=== PATIENT | female | born 2000 | race Caucasian/White ===

== ENCOUNTER 2022-07-24 06:00 | Inpatient (IN) | payer BC, OTHER ==
[2022-07-25 06:38] VITALS: BMI 45.1
[2022-07-25] MEDS ORDERED: Methylergonovine 0.2 MG/ML VIAL IM PRN (06:44)
[2022-07-25] MEDS ORDERED: Promethazine HCl 25 MG/ML VIAL IM PRN (06:44)
[2022-07-25] MEDS ORDERED: Misoprostol 200 MCG TAB PR PRN (06:44)
[2022-07-25] MEDS ORDERED: Ondansetron PF 4 MG/2 ML Vial IVP PRN (06:44)
[2022-07-25] MEDS ORDERED: HYDROcodone/Acetaminophen 5/325 mg Tablet PO PRN (06:44)
[2022-07-25] MEDS ORDERED: Lidocaine 1% (PF) 30 ML VIAL SC PRN (06:44)
[2022-07-25] MEDS ORDERED: Ibuprofen 800 MG TAB PO PRN (06:44)
[2022-07-25] MEDS ORDERED: Diphenoxylate HCl/Atropine Tablet PO PRN ×2 (06:44)
[2022-07-25] MEDS ORDERED: hydrALAZINE 20 MG/ML VIAL SLOW IVP PRN (06:44)
[2022-07-25] MEDS ORDERED: Acetaminophen 500 MG TAB PO PRN (06:44)
[2022-07-25] MEDS ORDERED: NS w/ Oxytocin 30 units 500 ML IV SCH ×2 (06:45)
[2022-07-25] MEDS: Misoprostol 100 MCG TAB VAG SCH ×3 (07:06→13:28)
[2022-07-25 07:31] LABS: Hemoglobin 12.4 g/dL (12.0-15.5); Mean Corpuscular HGB CONC 33.9 g/dL (32.0-36.0); Mean Corpuscular Hemoglobin 27.3 pg (27.0-33.0); Mean Corpuscular Volume 80.6 fl (81.6-98.3); Mean Platelet Volume 10.3 fl (7.4-10.4); Platelet Count 265 10x3/uL (150-450); Red Blood Cell (RBC) Count 4.54 10x6/uL (3.90-5.03); White Blood Cell (WBC) Count 13.6 10x3/uL (3.5-10.5)
[2022-07-25 08:03] LABS: Syphilis Antibody Nonreactive (Nonreactive); Syphilis Antibody Index 0.03 S/CO (<1.00 Non-Reactive)
[2022-07-25 08:04] LABS: HBSAg Index 0.19 S/CO (0-0.99); Hep B Surf Ag Non-Reactive S/CO (NonReactive)
[2022-07-25 08:21] LABS: SARS-CoV-2 NAA Rapid Test Not Detected (NotDetected)
[2022-07-25] MEDS ORDERED: Penicillin G Potassium 5 MILL.UNITS in Sodium Chloride 0.9% 100 ML IVPB SCH (09:00)
[2022-07-25] MEDS ORDERED: Penicillin G Potassium 5 MILL.UNITS VIAL ONE (16:18)
[2022-07-25] MEDS: Lactated Ringer's 1,000 ML IV SCH ×2 (16:22→23:49)
[2022-07-25] MEDS: Fentanyl 2 mcg/Bup 0.1% Cadd 100 ML ONE (17:42)
[2022-07-25] MEDS: Penicillin G 2.5 MILL.units 50 ML IVPB SCH ×2 (20:10→21:43)
[2022-07-26] MEDS ORDERED: Fentanyl 2 mcg/Bup 0.1% Cadd 100 ML ONE ×2 (00:14→07:44)
[2022-07-26] MEDS: Fentanyl 2 mcg/Bup 0.1% Cadd 100 ML ONE (00:19)
[2022-07-26] MEDS: Penicillin G 2.5 MILL.units 50 ML IVPB SCH ×2 (00:19→04:35)
[2022-07-26] MEDS ORDERED: diphenhydrAMINE 50 MG/ML VIAL IVP PRN (07:45)
[2022-07-26] MEDS ORDERED: ePHEDrine Sulfate 50 MG/10 ML VIAL SLOW IVP PRN (07:45)
[2022-07-26] MEDS ORDERED: Acetaminophen 325 MG TAB PO PRN (07:45)
[2022-07-26] MEDS ORDERED: Fentanyl 2 mcg/Bupivacaine 0.1% Cassette 100 ML EPIDURAL SCH (07:45)
[2022-07-26] MEDS ORDERED: Naloxone HCl 0.4 mg/ml Vial IVP PRN ×2 (07:45)
[2022-07-26] MEDS ORDERED: Moisturizing Cream (Eucerin) 113 GM JAR TOP PRN (07:45)
[2022-07-26] MEDS ORDERED: Ondansetron PF 4 MG/2 ML Vial IVP PRN (07:45)
[2022-07-26] MEDS ORDERED: Communication Order-Pharmacy FS SCH (07:45)
[2022-07-26] MEDS ORDERED: Lactated Ringer's 500 ML IV PRN (07:45)
[2022-07-26] MEDS ORDERED: Promethazine HCl 25 MG/ML VIAL IM PRN (07:45)
[2022-07-26] MEDS ORDERED: hydrALAZINE 20 MG/ML VIAL SLOW IVP PRN (12:15)
[2022-07-26] MEDS ORDERED: Bisacodyl 10 MG SUPP PR PRN (12:15)
[2022-07-26] MEDS ORDERED: Boostrix 0.5 ML (Tdap) VIAL (>/=7 yrs of age) IM ONE (12:15)
[2022-07-26] MEDS ORDERED: Milk Of Magnesia 30 ML UDCUP PO PRN (12:15)
[2022-07-26] MEDS ORDERED: Lanolin Ointment 7 GM TUBE TOP PRN (12:15)
[2022-07-26] MEDS ORDERED: traMADol HCl 50 MG TAB PO PRN (12:15)
[2022-07-26] MEDS ORDERED: Docusate 100 MG CAP PO SCH (12:30)
[2022-07-26] MEDS ORDERED: Prenatal Vitamin 1 TAB PO SCH (12:30)
[2022-07-26] MEDS: Ibuprofen 800 MG TAB PO SCH ×2 (14:37→22:41)
[2022-07-26] MEDS: Docusate 100 MG CAP PO SCH (22:00)
[2022-07-27] MEDS: Ibuprofen 800 MG TAB PO SCH ×3 (06:04→21:12)
[2022-07-27] MEDS: Ferrous Sulfate 325 MG TAB PO SCH (06:48)
[2022-07-27] MEDS: Lactated Ringer's 1,000 ML IV SCH ×2 (06:49→06:50)
[2022-07-27] MEDS: Misoprostol 100 MCG TAB VAG SCH ×2 (06:49→06:50)
[2022-07-27] MEDS: Penicillin G 2.5 MILL.units 50 ML IVPB SCH (06:49)
[2022-07-27] MEDS: Docusate 100 MG CAP PO SCH ×2 (08:51→21:11)
[2022-07-27] MEDS: Prenatal Vitamin 1 TAB PO SCH (08:52)
[2022-07-28] MEDS: Ibuprofen 800 MG TAB PO SCH (05:34)
[2022-07-28 08:00] VITALS: BP 129/72; TEMP 98.1
[2022-07-28] MEDS: Prenatal Vitamin 1 TAB PO SCH (11:09)
[2022-07-28] MEDS: Docusate 100 MG CAP PO SCH (11:09)
[2022-07-28] MEDS: Ferrous Sulfate 325 MG TAB PO SCH (11:09)
== END 2022-07-28 10:10 | disposition home or self-care (01) | DRG 807 ==
LOC: CSHLD 07-25 05:54 → CSHPP 07-26 11:45
PROVIDERS: ADMIT Obstetrics & Gynecology; ATTEND Obstetrics & Gynecology
PROC: 10E0XZZ Delivery of Products of Conception, External Approach (ICD-10-PCS; principal; 2022-07-26)
PROC: 0KQM0ZZ Repair Perineum Muscle, Open Approach (ICD-10-PCS; 2022-07-26)
DX: O99.824 Streptococcus B carrier state complicating childbirth (principal); Z37.0 Single live birth; Z3A.40 40 weeks gestation of pregnancy; Z20.822 Contact with and (suspected) exposure to COVID-19; O70.1 Second degree perineal laceration during delivery; Z90.721 Acquired absence of ovaries, unilateral
CPT/HCPCS: 51702; 85027; 86780; 86850; 86900; 86901; 87340; J2540; J2590; J3490; J7120; U0002

== ENCOUNTER 2024-06-01 19:52 | Inpatient (IN) | payer BC ==
[~2024-06-01 19:52] MED LIST: Bupivacaine 0.25% HCL 30 ML VIAL ONE; ePHEDrine Sulfate 50 MG/10 ML VIAL ONE
[2024-06-01] MEDS ORDERED: Lidocaine 1% (PF) 30 ML VIAL SC PRN (20:12)
[2024-06-01] MEDS ORDERED: Acetaminophen 500 MG TAB PO PRN (20:12)
[2024-06-01] MEDS ORDERED: Diphenoxylate HCl/Atropine Tablet PO PRN ×2 (20:12)
[2024-06-01] MEDS ORDERED: fentaNYL 50 mcg/mL 1 mL Vial SLOW IVP PRN (20:12)
[2024-06-01] MEDS ORDERED: Tranexamic Acid 1,000 MG/10 ML VIAL IVP PRN (20:12)
[2024-06-01] MEDS ORDERED: Oxytocin 30 units/NS 500 ML 500 ML IV SCH (20:12)
[2024-06-01] MEDS ORDERED: Promethazine HCl 25 MG/ML VIAL IM PRN (20:12)
[2024-06-01] MEDS ORDERED: Methylergonovine 0.2 MG/ML VIAL IM PRN (20:12)
[2024-06-01] MEDS ORDERED: Carboprost 250 MCG/ML AMP IM PRN (20:12)
[2024-06-01] MEDS ORDERED: HYDROcodone/Acetaminophen 5/325 mg Tablet PO PRN ×2 (20:12)
[2024-06-01] MEDS ORDERED: Ibuprofen 800 MG TAB PO PRN (20:12)
[2024-06-01] MEDS ORDERED: Zolpidem Tartrate 5 MG TAB PO PRN (20:12)
[2024-06-01] MEDS ORDERED: hydrALAZINE 20 MG/ML VIAL SLOW IVP PRN (20:12)
[2024-06-01 20:19] VITALS: BMI 46.0
[2024-06-01] MEDS: Lactated Ringer's 1,000 ML IV SCH (20:55)
[2024-06-01] MEDS: Misoprostol 100 MCG TAB VAG SCH (20:55)
[2024-06-01 22:11] LABS: Hematocrit 33.8 % (34.9-44.5); Hemoglobin 10.9 g/dL (12.0-15.5); Mean Corpuscular HGB CONC 32.2 g/dL (32.0-36.0); Mean Corpuscular Hemoglobin 24.5 pg (27.0-33.0); Mean Corpuscular Volume 76.1 fL (81.6-98.3); Mean Platelet Volume 10.6 fL (7.4-10.4); Platelet Count 281 10x3/uL (150-450); RBC Distribution Width 15.9 % (11.5-14.5); Red Blood Cell (RBC) Count 4.44 10x6/uL (3.90-5.03)
[2024-06-01 23:32] LABS: HBsAg Index 0.31 S/CO (0-0.99); Hep B Surf Ag - L&D Non-Reactive S/CO (NonReactive)
[2024-06-01 23:34] LABS: Syphilis Antibody Nonreactive (Nonreactive); Syphilis Antibody Index 0.08 S/CO (<1.00 Non-Reactive)
[2024-06-02] MEDS: Oxytocin 30 units/NS 500 ML 500 ML IV SCH (06:39)
[2024-06-02] MEDS: fentaNYL/Ropivacaine Epidural 100 ML ONE (08:15)
[2024-06-02] MEDS ORDERED: Naloxone HCl 0.4 mg/ml Vial IVP PRN ×2 (08:39)
[2024-06-02] MEDS ORDERED: Acetaminophen 325 MG TAB PO PRN (08:39)
[2024-06-02] MEDS ORDERED: Lactated Ringer's 500 ML IV PRN (08:39)
[2024-06-02] MEDS ORDERED: Ondansetron PF 4 MG/2 ML Vial IVP PRN (08:39)
[2024-06-02] MEDS ORDERED: diphenhydrAMINE 50 MG/ML VIAL IVP PRN (08:39)
[2024-06-02] MEDS ORDERED: Moisturizing Cream (Eucerin) 113 GM JAR TOP PRN (08:39)
[2024-06-02] MEDS ORDERED: Promethazine HCl 25 MG/ML VIAL IM PRN (08:39)
[2024-06-02] MEDS ORDERED: Communication Order-Pharmacy FS SCH (08:45)
[2024-06-02] MEDS ORDERED: fentaNYL 2 mcg/Ropivacaine 0.2% Epidural 100 ML CADD EPIDURAL SCH (08:45)
[2024-06-02] MEDS: Ondansetron PF 4 MG/2 ML Vial IVP PRN (09:32)
[2024-06-02] MEDS ORDERED: Dexmedetomidine 200 MCG/2 ML VIAL ONE (10:09)
[2024-06-02] MEDS: ePHEDrine Sulfate 50 MG/10 ML VIAL SLOW IVP PRN (10:25)
[2024-06-02] MEDS: Misoprostol 200 MCG TAB PR PRN (12:02)
[2024-06-02] MEDS ORDERED: hydrALAZINE 20 MG/ML VIAL SLOW IVP PRN (14:20)
[2024-06-02] MEDS ORDERED: traMADol HCl 50 MG TAB PO PRN (14:20)
[2024-06-02] MEDS ORDERED: Bisacodyl 10 MG SUPP PR PRN (14:20)
[2024-06-02] MEDS ORDERED: Lanolin Ointment 7 GM TUBE TOP PRN (14:20)
[2024-06-02] MEDS ORDERED: Boostrix 0.5 ML (Tdap) VIAL (>/=7 yrs of age) IM ONE (14:20)
[2024-06-02] MEDS ORDERED: Milk Of Magnesia 30 ML UDCUP PO PRN (14:20)
[2024-06-02] MEDS: Ferrous Sulfate 325 MG TAB PO SCH (16:37)
[2024-06-02] MEDS: Ibuprofen 800 MG TAB PO SCH (16:37)
[2024-06-03] MEDS: Docusate 100 MG CAP PO SCH (00:11)
[2024-06-03] MEDS: Prenatal Vitamin 1 TAB PO SCH (08:00)
[2024-06-03 09:59] VITALS: BP 110/67; TEMP 97.6
== END 2024-06-03 15:35 | disposition home or self-care (01) | DRG 807 ==
LOC: CSHLD 19:52 → CSHPP 06-02 14:05
PROVIDERS: ADMIT Obstetrics & Gynecology; ATTEND Obstetrics & Gynecology
PROC: 10E0XZZ Delivery of Products of Conception, External Approach (ICD-10-PCS; principal; 2024-06-01)
DX: O69.81X0 Labor and delivery complicated by cord around neck, without compression, not applicable or unspecified (principal); Z37.0 Single live birth; Z3A.39 39 weeks gestation of pregnancy
CPT/HCPCS: 36415; 51702; 85027; 86780; 86850; 86900; 86901; 87340; J0665; J2405; J2590; J7120

== ENCOUNTER 2025-03-03 11:50 | Day surgery (SDC) | payer BC ==
[2025-02-24 10:16] VITALS: BMI 42.9
[2025-03-03] MEDS ORDERED: Lidocaine 2% MPF 10 ML AMP (For Epidural Use) ONE (15:09)
[2025-03-03] MEDS ORDERED: CEFAZOLIN 2 GM VIAL ONE (15:09)
[2025-03-03] MEDS ORDERED: Bupivacaine/Epinephrine 0.25% 30 ML VIAL ONE (15:09)
[2025-03-03] MEDS ORDERED: Lidocaine 1% PF 5 ML VIAL ONE (15:28)
[2025-03-03] MEDS ORDERED: Rocuronium Bromide 10 MG/ML (10ML VIAL) ONE (15:28)
[2025-03-03] MEDS ORDERED: Ondansetron PF 4 MG/2 ML Vial ONE (15:28)
[2025-03-03] MEDS ORDERED: PHENYLEPHRINE-NS 100 MCG/ML 10 ML SYRINGE ONE (15:30)
[2025-03-03] MEDS ORDERED: SUGAMMADEX SODIUM 200 MG/2 ML VIAL ONE (15:44)
[2025-03-03] MEDS ORDERED: PROPOFOL 20 ML ONE (16:13)
[2025-03-03] MEDS ORDERED: Ketorolac Tromethamine 30 MG (1 mL) VIAL ONE (16:19)
[2025-03-03] MEDS ORDERED: HYDROcodone/Acetaminophen 10/325 mg Tablet ONE (17:10)
== END 2025-03-03 18:00 | disposition home or self-care (01) ==
LOC: CSHSDC 11:50
PROVIDERS: ATTEND Surgery
PROC: 0FT44ZZ Resection of Gallbladder, Percutaneous Endoscopic Approach (ICD-10-PCS; principal; 2025-03-03)
DX: K80.10 Calculus of gallbladder with chronic cholecystitis without obstruction (principal); E66.9 Obesity, unspecified; Z68.41 Body mass index [BMI] 40.0-44.9, adult; Z98.51 Tubal ligation status; Z90.79 Acquired absence of other genital organ(s); Z90.721 Acquired absence of ovaries, unilateral
CPT/HCPCS: 36416; 88304; C1889; J1100; J1885; J2250; J2405; J2704; J3010; S2900